=== PATIENT | female | born 1940 | race African-American/Black ===

== ENCOUNTER 2022-01-31 10:50 | Observation (INO) | payer OTHER ==
[2022-01-31 12:47] LABS: #Lymphocytes 2.3 thou/uL (1.20-3.40); #Monocytes 0.6 thou/uL (0.11-0.59); #Neutrophils 4.2 thou/uL (1.40-6.50); %Basophils 0.1 % (0.0-1.0); %Eosinophils 0.7 % (0.0-10.0); %Lymphocytes 32.8 % (21.0-51.0); %Monocytes 8.1 % (0.0-10.0); %Neutrophils 58.3 % (42.0-75.0); Hemoglobin 12.9 g/dL (12.0-16.0); Mean Corpuscular HGB CONC 31.8 g/dL (32.0-36.0); Mean Corpuscular Hemoglobin 26.6 pg (27.0-31.0); Mean Corpuscular Volume 83.6 fL (78.0-98.0); Mean Platelet Volume 8.9 fL (7.4-10.4); Platelet Count 208 thou/uL (130-400); RBC Distribution Width 11.9 % (11.5-14.5); Red Blood Cell (RBC) Count 4.86 mill/uL (4.20-5.40); White Blood Cell (WBC) Count 7.1 thou/uL (4.8-10.8)
[2022-01-31 13:09] LABS: ALT (SGPT) 12 U/L (8-55); AST (SGOT) 19 U/L (5-34); Albumin 3.8 g/dL (3.4-4.8); Alkaline Phosphatase 122 U/L (40-110); Anion Gap 10 mmol/L (10-20); BUN (Urea Nitrogen) 5 mg/dL (9.8-20.1); Bilirubin, Total 0.4 mg/dL (0.2-1.2); CK (CPK) 187 U/L (29-168); Calc. Creatinine Clearance 0 mL/min (70-130); Calcium 9.7 mg/dL (7.8-10.44); Carbon Dioxide 30 mmol/L (23-31); Chloride 103 mmol/L (98-107); Estimated GFR 88; Globulin 3.8 g/dL (2.4-3.5); Glucose 97 mg/dL (83-110); Magnesium 1.8 mg/dL (1.6-2.6); Potassium 3.4 mmol/L (3.5-5.1); Protein, Total 7.6 g/dL (5.8-8.1); Sodium 140 mmol/L (136-145)
[2022-01-31 14:51] LABS: Bacteria/HPF None Seen HPF (None Seen); Bilirubin Negative (Negative); Blood, Urine Negative (Negative); Clarity Clear (Clear); Glucose, Urine (Dipstick) Normal (Negative); Ketone, Urine Negative (Negative); Leukocyte 75 Leu/uL (Negative); Nitrite Negative (Negative); Protein, Urine (Dipstick) Negative (Neg-Trace); RBC/HPF 0-3 HPF (0-3); Specific Gravity, Urine 1.008 (1.002-1.036); Squamous Epithelial 0-3 HPF (0-3); Urobilinogen Normal mg/dL (Less than 2); WBC/HPF 0-3 HPF (0-3); pH, Urine 7.5 (5.0-9.0)
[2022-01-31] MEDS ORDERED: Potassium Chloride 20 MEQ TAB PO SCH (15:15)
[2022-01-31 16:09] LABS: Magnesium 1.9 mg/dL (1.6-2.6)
[2022-01-31 16:42] LABS: Lactic Acid 1.7 mmol/L (0.5-2.2)
[2022-01-31] MEDS ORDERED: Potassium Chloride 20 MEQ TAB ONE (16:48)
[2022-01-31 17:12] LABS: Free T4 (Free Thyroxine) 1.34 ng/dL (0.70-1.48); Thyroid Stimulating Hormone Less than 0.0025 uIU/mL (0.35-4.94); Vitamin B12 694 pg/mL (211-911)
[2022-01-31 17:38] LABS: SARS-CoV-2 NAA Rapid Test Not Detected (NotDetected)
[2022-01-31 18:34] VITALS: BMI 20.1
[2022-01-31] MEDS ORDERED: Atenolol 50 MG TAB PO SCH ×2 (18:45)
[2022-01-31 19:23] LABS: Syphilis Antibody Index 4.61 S/CO (<1.00 Non-Reactive)
[2022-01-31 19:33] LABS: Syphilis Antibody INDETERMINATE (Nonreactive)
[2022-01-31] MEDS ORDERED: Enoxaparin Sodium 40 MG/0.4 ML SYRINGE SC SCH (21:00)
[2022-02-01 08:03] VITALS: TEMP 97.9
[2022-02-01] MEDS ORDERED: Atenolol 50 MG TAB PO SCH (09:00)
[2022-02-01 09:16] VITALS: BP 184/92
== END 2022-02-01 11:05 | disposition home or self-care (01) ==
LOC: ERS 10:50 → ERHOLD 15:27 → NEURO 17:46
PROVIDERS: ADMIT Internal Medicine; ATTEND Internal Medicine
DX: G93.40 Encephalopathy, unspecified (principal); I10 Essential (primary) hypertension; E87.6 Hypokalemia; E05.20 Thyrotoxicosis with toxic multinodular goiter without thyrotoxic crisis or storm; Z91.14 Patient's other noncompliance with medication regimen; Z20.822 Contact with and (suspected) exposure to COVID-19
CPT/HCPCS: 70450; 70551; 71045; 76536; 82140; 82550; 82607; 83605; 83735; 84145; 84238; 84439; 84481; 84484 ×2; 86593; 86780; 93005; 99285; G0378 ×3; U0002; 36415; 80053; 81003; 81015; 84443; 85025

== ENCOUNTER 2023-12-31 13:35 | Inpatient (IN) | payer MEDICARE, OTHER, SELFPAY ==
[2023-12-31 14:40] LABS: #Basophils 0.04 10x3/uL (0.0-0.2); #Eosinphils Less than 0.03 10x3/uL (0.0-0.7); %Basophils 0.4 % (0.0-1.0); %Eosinophils 0.2 % (0.0-10.0); %Lymphocytes 26.3 % (21.0-51.0); %Monocytes 5.4 % (0.0-10.0); %Neutrophils 67.4 % (42.0-75.0); Hematocrit 42.5 % (36.0-47.0); Hemoglobin 13.6 g/dL (12.0-16.0); Mean Corpuscular Volume 84.5 fL (78.0-98.0); Mean Platelet Volume 11.1 fL (7.4-10.4); Platelet Count 210 10x3/uL (130-400); RBC Distribution Width 13.2 % (11.5-14.5); Red Blood Cell (RBC) Count 5.03 mill/uL (4.20-5.40)
[2023-12-31 14:45] LABS: Actual Bicarbonate (HCO3v) 20.4 mEq/L (22-28); Base Excess -3.1 mEq/L (-2.0 to +3.0); Calcium, Ionized (venous) 1.15 mmol/L (1.16-1.32); Chloride (VBG) 107 mmol/L (98-106); Hematocrit-VBG 43 % (36.0-47.0); Hemoglobin (Hb) 14.6 g/dL (11.7-16.1); Potassium (VBG) 4.11 mmol/L (3.70-5.30); Sodium 143 mmol/L (133-146); pH (venous) 7.417 (7.32-7.43)
[2023-12-31] MEDS ORDERED: Labetalol HCl 100 MG/20 ML VIAL ONE ×3 (14:52→19:47)
[2023-12-31 14:59] LABS: ALT (SGPT) 12 U/L (8-55); AST (SGOT) 21 U/L (5-34); Albumin 3.7 g/dL (3.4-4.8); Alkaline Phosphatase 109 U/L (40-110); Anion Gap 15 mmol/L (10-20); BUN (Urea Nitrogen) 8 mg/dL (9.8-20.1); Bilirubin, Total 0.7 mg/dL (0.2-1.2); Calc. Creatinine Clearance 0 mL/min (70-130); Calcium 9.5 mg/dL (7.8-10.44); Carbon Dioxide 24 mmol/L (23-31); Chloride 110 mmol/L (98-107); Estimated GFR 82; Globulin 4.2 g/dL (2.4-3.5); Glucose 139 mg/dL (83-110); Potassium 4.4 mmol/L (3.5-5.1); Protein, Total 7.9 g/dL (5.8-8.1); Sodium 145 mmol/L (136-145)
[2023-12-31 15:05] LABS: Troponin I Less than 0.010 ng/mL (< 0.028)
[2023-12-31 17:07] LABS: Bacteria/HPF None Seen HPF (None Seen); Bilirubin Negative (Negative); Blood, Urine Negative (Negative); CAUTI Indications for Culture Alt mental st,lethar; Clarity Clear (Clear); Glucose, Urine (Dipstick) Normal (Negative); Ketone, Urine Negative (Negative); Leukocyte 25 Leu/uL (Negative); Nitrite Negative (Negative); Protein, Urine (Dipstick) 10 mg/dL (Neg-Trace); RBC/HPF 0-3 HPF (0-3); Specific Gravity, Urine 1.011 (1.002-1.036); Squamous Epithelial 0-3 HPF (0-3); Urobilinogen Normal mg/dL (Less than 2); WBC/HPF 0-3 HPF (0-3)
[2023-12-31 17:09] LABS: Urine Culture Reflex No No
[2023-12-31] MEDS ORDERED: Acetaminophen 650 MG Suppository PR PRN (20:30)
[2023-12-31] MEDS ORDERED: Senokot S 8.6-50 MG TAB PO PRN (20:30)
[2023-12-31 21:28] VITALS: BMI 20.9
[2023-12-31] MEDS: Atenolol 50 MG TAB PO SCH (21:33)
[2023-12-31] MEDS: Methimazole 10 MG TAB PO SCH (21:33)
[2023-12-31] MEDS: Acetaminophen 325 MG TAB PO PRN (21:34)
[2023-12-31 21:35] LABS: Free T4 (Free Thyroxine) 1.07 ng/dL (0.70-1.48)
[2024-01-01] MEDS: Haloperidol Lactate 5 MG/ML VIAL IM SCH (02:27)
[2024-01-01 04:55] LABS: #Basophils Less than 0.03 10x3/uL (0.0-0.2); %Basophils 0.3 % (0.0-1.0); %Eosinophils 0.6 % (0.0-10.0); %Lymphocytes 27.2 % (21.0-51.0); %Monocytes 8.6 % (0.0-10.0); Hemoglobin 12.5 g/dL (12.0-16.0); Mean Corpuscular HGB CONC 32.1 g/dL (32.0-36.0); Mean Corpuscular Hemoglobin 27.1 pg (27.0-31.0); Mean Corpuscular Volume 84.4 fL (78.0-98.0); Mean Platelet Volume 11.2 fL (7.4-10.4); Platelet Count 209 10x3/uL (130-400); RBC Distribution Width 13.3 % (11.5-14.5); Red Blood Cell (RBC) Count 4.62 mill/uL (4.20-5.40)
[2024-01-01] MEDS: Haloperidol Lactate 5 MG/ML VIAL SLOW IVP SCH (05:07)
[2024-01-01 05:13] LABS: Anion Gap 13 mmol/L (10-20); BUN (Urea Nitrogen) 7 mg/dL (9.8-20.1); Calc. Creatinine Clearance 54 mL/min (70-130); Calcium 8.9 mg/dL (7.8-10.44); Carbon Dioxide 23 mmol/L (23-31); Chloride 108 mmol/L (98-107); Estimated GFR 88; Glucose 104 mg/dL (83-110); Potassium 3.2 mmol/L (3.5-5.1); Sodium 141 mmol/L (136-145)
[2024-01-01] MEDS: Methimazole 10 MG TAB PO SCH (08:32)
[2024-01-01] MEDS: Enoxaparin 40 MG (0.4 mL) SYRINGE SC SCH (08:33)
[2024-01-01] MEDS: Potassium Chloride 20 MEQ TAB PO SCH (11:35)
[2024-01-02] MEDS: Labetalol HCl 100 MG/20 ML VIAL SLOW IVP SCH (01:59)
[2024-01-02 04:53] LABS: Anion Gap 14 mmol/L (10-20); BUN (Urea Nitrogen) 15 mg/dL (9.8-20.1); Calc. Creatinine Clearance 46 mL/min (70-130); Calcium 9.1 mg/dL (7.8-10.44); Carbon Dioxide 21 mmol/L (23-31); Chloride 109 mmol/L (98-107); Estimated GFR 76; Glucose 97 mg/dL (83-110); Sodium 140 mmol/L (136-145)
[2024-01-02] MEDS ORDERED: Amlodipine 5 MG TAB PO SCH (09:00)
[2024-01-02] MEDS: Losartan 25 MG TAB PO SCH ×2 (09:38→20:39)
[2024-01-03 07:59] VITALS: TEMP 97.4
[2024-01-03 14:20] VITALS: BP 140/67
== END 2024-01-03 14:22 | disposition home health service (06) | DRG 304 ==
LOC: ERS 13:35 → 2NO 19:16 → OBSVTOIN 01-01 08:47
PROVIDERS: ADMIT Internal Medicine; ATTEND Internal Medicine
DX: I16.1 Hypertensive emergency (principal); G93.41 Metabolic encephalopathy; E05.90 Thyrotoxicosis, unspecified without thyrotoxic crisis or storm; I10 Essential (primary) hypertension; F03.90 Unspecified dementia, unspecified severity, without behavioral disturbance, psychotic disturbance, mood disturbance, and anxiety; Z79.899 Other long term (current) drug therapy; Z91.148 Patient's other noncompliance with medication regimen for other reason; E87.6 Hypokalemia
CPT/HCPCS: 36415; 70450; 71045; 80048; 80053; 81001; 82550; 82805; 84439; 84443; 84481; 84484; 85025; 93005; 96372; 96374; 96375; 96376; G0378; J1630; J1650